=== PATIENT | male | born 1950 | race Caucasian/White ===

== ENCOUNTER 2017-02-18 23:23 | Inpatient (IN) ==
[2017-02-18] MEDS ORDERED: ALBUTEROL 2.5 MG/3 ML NEB RESP TX STA (23:57)
[2017-02-18] MEDS ORDERED: methylPREDNISolone SOD SUC 125 MG/2 ML VIAL IV STA (23:58)
[2017-02-19] MEDS ORDERED: methylPREDNISolone SOD SUC 125 MG/2 ML VIAL ONE
[2017-02-19 00:15] LABS: Basophils % 0.3 % (0.0-0.8); Eosinophils # 0.1 10*3/uL (0.0-0.87); Eosinophils % 1.1 % (0.00-10.9); Hematocrit 38.3 VOL% (42.0-52.0); Hemoglobin 13.9 GM/DL (14.0-18.0); Immature Granulocytes % 1.6 %; Immature Granulocytes Absolute 0.17 #; Lymphocytes # 0.9 10*3/uL (1.4-4.0); Lymphocytes % 8.6 % (21.2-54.2); Mean Corpuscular HGB Conc 36.3 GM/DL (32-36); Mean Corpuscular Hemoglobin 32 PG (27-34); Mean Corpuscular Volume 88.5 FL (87-102); Mean Platelet Volume 8.4 FL (9.6-12.0); Monocytes # 0.8 10*3/uL (0.11-0.8); Monocytes % 7.5 % (1.7-12.7); Neutrophils # 8.6 10*3/uL (1.4-7.4); Neutrophils % 80.9 % (38.7-73.9); Platelet Count 216 T/CUMM (130-400); Red Blood Count 4.33 MC/CUMM (3.8-5.5); Red Cell Distribution Width 11.6 % (9.3-17.3); White Blood Count 10.6 T/CUMM (4-12)
[2017-02-19 00:24] LABS: PT Patient Result 10.8 SECS
[2017-02-19 00:28] LABS: ABG Base Excess 3.4 MMOL/L (-2.5-2.5); ABG HCO3 27.4 MMOL/L (20-26); ABG Oxygen Saturation 96.9 % (95-100); ABG PCO2 58.5 MM HG (35-48); ABG PH 7.335 (7.35-7.45); ABG TCO2 27.1 MMOL/L (23-27); Allen Test Positive
--- NOTE | 2017-02-19 00:34 | Emergency Department Note ---
Rogelio Mix Emily, am scribing for, and in the presence of, Leonardo Melo MD 00: 11. Kameron Mix Robert M, MD, personally performed the services described in this documentation, ascribed by Natalia Mercado in my presence, and it is both accurate and complete . Arrival - Arrival Chief Complaint: Fall Stated Complaint: fall ED Nursing Triage Note: EMS reports that patient had a fall secondary to lightheadedness. Patient states that he has been having some chest congestion and shortness of breath that made him feel lightheaded. Hx of HTN and high cholesterol. Mode of Arrival: Stretcher Limitations: No Limitations Source: Patient - History of Present Illness HPI Narrative: Pt is a 66 y/o male who came to ED with c/o fall earlier tonight secondary to lightheadedness. Pt notes getting a Sprite from kitchen and walking down [place] when fall occurred but denies tripping. Pt has slurred speech in ED which is not nml, per spouse. Pt has seen Dr. Presley recently and given Z-deanna but no relief, per spouse. Pt has no prior hx of heart issues. Onset (ago): hour(s) Consistency: constant Severity: moderate Severity scale (1-10): 7 Quality: aching, fullness Allergies/Adverse Reactions: Allergies Allergy/AdvReac Type Severity Reaction Status Date / Time Penicillins Allergy HIVES Verified 02/19/17 00:49 Home Medications: Home Medications Medication Instructions Recorded Confirmed Type Aspirin [Aspirin EC] 81 mg PO DAILY 02/19/17 02/19/17 History Atenolol 50 mg PO BID 02/19/17 02/19/17 History LORazepam [Lorazepam] 0.5 mg PO BID PRN 02/19/17 02/19/17 History Potassium Chloride Cap/Tab [K Dur] 20 meq PO DAILY 02/19/17 02/19/17 History Simvastatin 20 mg PO BEDTIME 02/19/17 02/19/17 History Review of System - Review of System 12 point system: reviewed and no additional remarkable complaints except as stated - Review of System Constitutional: Absent: chills, fever Head/Ears/Nose/Throat: Present: other (bit tongue) Respiratory: Present: respiratory distress, wheezing Cardiovascular: Absent: chest pain, syncope Gastrointestinal: Absent: abdominal pain, nausea, vomiting Skin: Absent: rash Neurological: Present: other (feeling sleepy; lightheadedness). Absent: confusion Medical,Surgical,& Family Hx - Medical History Cardio: History of: Hypertension Endocrine: History of: Dyslipidemia - Social History Smoking Status: Current every day smoker Frequency of Alcohol Use: Occasionally Type of Drug Use: None Exam Vital Signs: Vital Signs Temperature 98.1 F 02/18/17 23:28 Pulse Rate 75 02/19/17 00:21 Respiratory Rate 20 02/19/17 00:21 Blood Pressure 214/95 02/18/17 23:28 O2 Sat by Pulse Oximetry 99 02/19/17 00:21 - General General appearance: alert, in no apparent distress, other (acute slurred speech) - Head Head exam: Present: atraumatic, normocephalic - Eye Eye exam: Present: PERRL, EOMI - ENT ENT exam: Present: mucous membranes moist, other (white maral on tongue with bleeding controlled). Absent: mucous membranes dry - Neck Neck exam: Present: full ROM. Absent: tenderness - Chest Chest inspection: Present: symmetric chest wall rise. Absent: tenderness - Respiratory Respiratory exam: Present: rales (bilateral), wheezes (bilateral), other ( tachypneic). Absent: normal lung sounds bilaterally - Cardiovascular Cardiovascular exam: Present: regular rate, normal rhythm, normal heart sounds - Abdominal Exam Abdominal exam: Present: soft, distention. Absent: tenderness, guarding, rebound - Extremities Exam Extremities exam: Present: full ROM. Absent: tenderness, pedal edema - Neurological Exam Neurological exam: Present: alert, oriented X3, CN II-XII intact. Absent: motor sensory deficit - Psychiatric Psychiatric exam: Present: normal affect, normal mood - Skin Skin exam: Present: warm, dry Course - Consultations Consultation #1: Dr. Elba Kramer will evaluate and admit the patient. Time: 01:04 Results - Labs CBC & BMP: 02/18/17 23:47 02/18/17 23:47 Lab Results: I have reviewed the patients labs Labs: Lab Results WBC 10.6 T/CUMM (4-12) 02/18/17 23:47 RBC 4.33 MC/CUMM (3.8-5.5) 02/18/17 23:47 Hgb 13.9 GM/DL (14.0-18.0) L 02/18/17 23:47 Hct 38.3 VOL% (42.0-52.0) L 02/18/17 23:47 MCV 88.5 FL (87-102) 02/18/17 23:47 MCH 32 PG (27-34) 02/18/17 23:47 MCHC 36.3 GM/DL (32-36) H 02/18/17 23:47 RDW 11.6 % (9.3-17.3) 02/18/17 23:47 Plt Count 216 T/CUMM (130-400) 02/18/17 23:47 MPV 8.4 FL (9.6-12.0) L 02/18/17 23:47 Neut % (Auto) 80.9 % (38.7-73.9) H 02/18/17 23:47 Lymph % (Auto) 8.6 % (21.2-54.2) L 02/18/17 23:47 Anderson % (Auto) 7.5 % (1.7-12.7) 02/18/17 23:47 Eos % (Auto) 1.1 % (0.00-10.9) 02/18/17 23:47 Baso % (Auto) 0.3 % (0.0-0.8) 02/18/17 23:47 Neut # (Auto) 8.6 10*3/uL (1.4-7.4) H 02/18/17 23:47 Lymph # (Auto) 0.9 10*3/uL (1.4-4.0) L 02/18/17 23:47 Anderson # (Auto) 0.8 10*3/uL (0.11-0.8) 02/18/17 23:47 Eos # (Auto) 0.1 10*3/uL (0.0-0.87) 02/18/17 23:47 Baso # (Auto) 0.0 10*3/uL (0.0-0.2) 02/18/17 23:47 Immature Gran % 1.6 % 02/18/17 23:47 Nucleated RBC % 0.0 /100WBC 02/18/17 23:47 Immature Gran # 0.17 # 02/18/17 23:47 Nucleated RBCs # 0.00 10*3/uL 02/18/17 23:47 INR 1.0 02/18/17 23:47 PT Patient/Control Mix 10.8 SECS 02/18/17 23:47 Sodium 109 MMOL/L (136-145) L* 02/18/17 23:47 Potassium 4.7 MMOL/L (3.5-5.1) 02/18/17 23:47 Chloride 69 MMOL/L (98-107) L 02/18/17 23:47 Carbon Dioxide 29 MMOL/L (21-32) 02/18/17 23:47 Anion Gap 15.7 MMOL/L (5.0-15.0) H 02/18/17 23:47 BUN 3 MG/DL (7-18) L 02/18/17 23:47 Creatinine 0.30 MG/DL (0.70-1.30) L 02/18/17 23:47 GFR Calculation 153 ML/MIN 02/18/17 23:47 BUN/Creatinine Ratio 10.00 RATIO (6.00-20.00) 02/18/17 23:47 Glucose 116 MG/DL (74-106) H 02/18/17 23:47 Calculated Osmolality 218.7 MOS/KG (273-304) L 02/18/17 23:47 Calcium 8.2 MG/DL (8.5-10.1) L 02/18/17 23:47 ABG pH 7.335 (7.35-7.45) L 02/19/17 00:10 ABG pCO2 58.5 MM HG (35-48) H 02/19/17 00:10 ABG pO2 96.0 MM HG (80-95) H 02/19/17 00:10 ABG HCO3 27.4 MMOL/L (20-26) H 02/19/17 00:10 ABG Total CO2 27.1 MMOL/L (23-27) H 02/19/17 00:10 ABG O2 Saturation 96.9 % (95-100) 02/19/17 00:10 ABG Base Excess 3.4 MMOL/L (-2.5-2.5) H 02/19/17 00:10 FiO2 28.00 PERCENT (0-100) 02/19/17 00:10 Serum Alcohol 74 MG/DL (<15) 04/19/17 23:47 - Diagnostic Findings Procedure: Chest x-ray: image reviewed by me (Volume overload versus crowding of the normal vasculature.), CT: report reviewed by me (Left nasal bone fracture ) Disposition Clinical Impression: Hyponatremia, Poorly-controlled hypertension, Syncope, Reversible obstructive airway disease Case discussed with: patient, patient's family Disposition: Still a Patient Condition: Guarded Time of Disposition: 01:04
[2017-02-19 00:50] LABS: Calcium 8.2 MG/DL (8.5-10.1); Osmolality,Calculated 218.7 MOS/KG (273-304); Potassium 4.7 MMOL/L (3.5-5.1)
[2017-02-19] MEDS ORDERED: LABETALOL 20 MG/4 ML SYRINGE IV STA (01:01)
[2017-02-19] MEDS ORDERED: LABETALOL 20 MG/4 ML SYRINGE IV ONE (01:05)
[2017-02-19] MEDS ORDERED: FUROSEMIDE 40 MG/4 ML VIAL IV STA (01:05)
[2017-02-19] MEDS ORDERED: ALBUTEROL 2.5 MG/3 ML NEB RESP TX STA (01:07)
[2017-02-19] MEDS ORDERED: FUROSEMIDE 40 MG/4 ML VIAL ONE (01:15)
[2017-02-19] MEDS ORDERED: ONDANSETRON 4 MG/2 ML VIAL IV PRN (01:17)
[2017-02-19] MEDS ORDERED: ACETAMINOPHEN 325 MG TABLET PO PRN (01:17)
--- NOTE | 2017-02-19 01:26 | EKG Report ---
Stationary ECG Study [facility] ER Test Date: 02/19/2017 1:23:50 AM Pat Name: CLAUDIA JUNIOR Department: Room: Gender: M Rn Transfer: : 1950 Requested by: Leonardo Melo Order Number: [id number] Reading MD: VANESSA LANGFORD Intervals [place] Rate: 76 P: 66 TN: 152 QRS: 65 QRSD: 86 T: 79 QT: 366 QTc: 396 Interpretive Statements SINUS RHYTHM POSSIBLE SEPTAL MYOCARDIAL INFARCTION, OLD IF PRESENT Electronically Signed On 02-23-17 11:36:43 CDT by VANESSA LANGFORD [email or web address]
[2017-02-19] MEDS ORDERED: niCARdipine INJ 25 MG in SODIUM CHLORIDE 0.9% 240 ML IV SCH (01:30)
--- NOTE | 2017-02-19 02:09 | Hospitalist History & Physical ---
Assessment and Plan - Time spent with patient Time spent with patient: Greater than 30 minutes (1) Hyponatremia Status: Acute Assessment and plan: Severe hyponatremia with a sodium of 109. A repeat has been ordered to confirm. Consider nephrology consultation. Follow-up urine electrolytes. The patient is a regular alcohol drinker consuming primarily beer. Consider beer [place] [employer] as a cause for his fluid overload and hyponatremia with low serum osmolality. Current Visit: Yes (2) Fluid overload Status: Acute Assessment and plan: Lasix ordered. Monitor urine output. Follow-up urine electrolytes. Current Visit: Yes Qualifiers: Hypervolemia type: unspecified Qualified Code(s): E87.70 - Fluid overload, unspecified (3) COPD (chronic obstructive pulmonary disease) Status: Chronic Assessment and plan: Add steroids and neb treatments. Current Visit: Yes Qualifiers: COPD type: COPD with acute exacerbation Qualified Code(s): J44.1 - Chronic obstructive pulmonary disease with (acute) exacerbation (4) Syncope Status: Acute Assessment and plan: This is thought to be related to his severe hyponatremia. Current Visit: Yes Qualifiers: Encounter type: initial encounter (5) Poorly-controlled hypertension Status: Chronic Assessment and plan: Continue home medications and add as needed IV medications to support blood pressure. I suspect this will improve with reduction of his fluid. Current Visit: Yes (6) Nasal bones, closed fracture Status: Acute Current Visit: Yes Qualifiers: Encounter type: initial encounter Qualified Code(s): S02.2XXA - Fracture of nasal bones, initial encounter for closed fracture History of Present Illness Chief complaint: Lightheadedness and fall History of present illness: Mr. Marie is a 66 year old male who came to ED with c/o fall earlier tonight secondary to lightheadedness. Patient reports getting a Sprite from kitchen and walking down [address] when fall occurred but denies tripping. Pt has slurred speech in ED. his reports that he has been on steady on his feet over the last 2 days. He had another fall a few days ago and has multiple areas of bruising on his arms in different stages of healing with skin tear. Tonight he suffered a left nasal bone fracture and had some blood in his mouth with a small laceration from the fall. CT of the head was otherwise unremarkable for evidence of bleeding. The patient is noted to have a significantly low sodium which is being repeated. It was initially 109. He also has shortness of breath and and appears volume overloaded. He has received Lasix in the emergency department and is starting to have urine output. His reports a history of hypertension and COPD. The patient continues to smoke approximately 1 pack per day and drinks 6-8 beers per day. His is his power of city attorney and surrogate decision maker. He is a full code. His home medication list was reviewed and reconciled. Mr. Marie is being admitted to the intensive care unit to the hospitalist service for further evaluation and treatment of volume overload and severe hyponatremia with lightheadedness and fall. Home Medications Medication Instructions Recorded Confirmed Type Aspirin [Aspirin EC] 81 mg PO DAILY 02/19/17 02/19/17 History Atenolol 50 mg PO BID 02/19/17 02/19/17 History LORazepam [Lorazepam] 0.5 mg PO BID PRN 02/19/17 02/19/17 History Potassium Chloride Cap/Tab [K Dur] 20 meq PO DAILY 02/19/17 02/19/17 History Simvastatin 20 mg PO BEDTIME 02/19/17 02/19/17 History Allergies Allergy/AdvReac Type Severity Reaction Status Date / Time Penicillins Allergy HIVES Verified 02/19/17 00:49 Medical,Surgical,& Family Hx - Medical History Cardio: History of: Hypertension Endocrine: History of: Dyslipidemia Respiratory: History of: COPD - Family History Family History: Reports;: Family Hypertension - Social History Smoking Status: Current every day smoker (Approximately 1 pack per day) Have you smoked in the last 12 months: Yes Frequency of Alcohol Use: Frequently (6-8 beers per day) Type of Drug Use: None Marital Status: Lives With:: Spouse Functional capacity: independent ambulation 12 point system: reviewed and no additional remarkable complaints except as stated - Constitutional Constitutional: Present: as per HPI - Neurological Neurological: Present: as per HPI, abnormal speech, frequent falls Exam - Constitutional Vitals: Period Temp Pulse Resp BP Sys/Chanel Pulse Ox Last 24 Hr 98.1 F-98.1 F 72-75 19-29 214-214/95-95 98-100 Exam: Constitutional System: Mild distress. No tremulousness. Patient is cooperative with exam. Head: Normocephalic, atraumatic. Left nasal bone fracture noted. Ecchymoses and enlarged nasal bridge noted Ears, Nose and Throat System: No pain or tenderness. No epistaxis or discharge. Dried blood in the mouth noted. Eyes System: Pupils equal, round, and reactive. Extraocular muscles intact. Neck: Supple, without adenopathy, No jugular venous distention. No thyromegaly, neck mass, or prior surgery apparent. Respiratory System: Chest bilateral rales to auscultation. Cardiovascular System: Heart with regular rate and rhythm. No murmur. GI System: Abdomen soft, nontender. Normo active bowel sounds present. Musculoskeletal System: limbs with no pedal edema. Full distal pulses. Multiple areas of bruising and skin tears noted. Neurological System: No discernable sensory deficit. No aphasia. Patient with some slurred speech. Psychiatric System: Conversation is rational Results - Labs CBC & BMP: 02/18/17 23:47 02/18/17 23:47 Lab Results: I have reviewed the past 24 hour labs - Diagnostic Findings Procedure: Chest x-ray: image reviewed by me, report reviewed by me, CT: image reviewed by me, report reviewed by me
[2017-02-19 02:15] LABS: Calcium 7.9 MG/DL (8.5-10.1); Magnesium 1.9 MG/DL (1.8-2.4); Osmolality,Calculated 217.9 MOS/KG (273-304); Potassium 4.2 MMOL/L (3.5-5.1)
[2017-02-19] MEDS ORDERED: hydrALAZINE 20 MG/1 ML VIAL IV PRN (02:20)
[2017-02-19 02:23] LABS: Apearance,Urine CLEAR (Clear); Bacteria,Urine Occasional /HPF (Few); Bilirubin,Urine Negative (Negative); Blood, Urine Small mg/dL (Negative); Glucose,Urine (UA) 50 mg/dL (Negative); Ketones,Urine Negative (Negative); Mucus,Urine Occasional /LPF (Occasional); Nitrite,Urine Negative (Negative); Protein,Urine 30 MG/DL; RBC,Urine 4 /HPF (0-4); Urine Color Yellow (Yellow); Urine Specific Gravity 1.008 (1.001-1.035); Urine Urobilinogen < 2.0 EU/DL (0.2-1.0); WBC,Urine 2 /HPF (0-6)
[2017-02-19 02:25] LABS: Barbiturates Screen,Urine Negative (Negative); Benzodiazepines Screen,Urine Negative (Negative); Cannabinoid Screen,Urine Negative (Negative); Opiate Screen,Urine Negative (Negative); Phencyclidine Screen,Urine Negative (Negative)
[2017-02-19] MEDS ORDERED: ALBUTEROL/IPRATROPIUM 3 ML NEB RESP TX PRN (02:25)
[2017-02-19 04:06] LABS: Basophils % 0.2 % (0.0-0.8); Eosinophils % 0.1 % (0.00-10.9); Hematocrit 37.8 VOL% (42.0-52.0); Hemoglobin 13.6 GM/DL (14.0-18.0); Immature Granulocytes % 0.8 %; Immature Granulocytes Absolute 0.08 #; Lymphocytes # 0.4 10*3/uL (1.4-4.0); Lymphocytes % 4.3 % (21.2-54.2); Mean Corpuscular Hemoglobin 32 PG (27-34); Mean Corpuscular Volume 87.9 FL (87-102); Mean Platelet Volume 8.2 FL (9.6-12.0); Monocytes # 0.2 10*3/uL (0.11-0.8); Neutrophils # 9.4 10*3/uL (1.4-7.4); Neutrophils % 92.6 % (38.7-73.9); Platelet Count 198 T/CUMM (130-400); Red Cell Distribution Width 11.6 % (9.3-17.3); White Blood Count 10.1 T/CUMM (4-12)
[2017-02-19 04:46] LABS: Albumin 2.5 G/DL (3.4-5.0); Bilirubin,Total 0.7 MG/DL (0.2-1.0); Calcium 7.8 MG/DL (8.5-10.1); Magnesium 1.8 MG/DL (1.8-2.4); Osmolality,Calculated 221.6 MOS/KG (273-304); Potassium 4.4 MMOL/L (3.5-5.1); Risk Ratio 1.88; Thyroid Stimulating Hormone 0.221 uIU/ml (0.358-3.74); VLDL CHOLESTEROL 10.6 MG/DL
[2017-02-19 04:52] LABS: Band Neutrophils 1 % (0-10); Eosinophils 1 % (0-10); Hypochromasia 1+; Lymphocytes 4 % (20-55); Platelet Estimate Normal; Segmented Neutrophils 90 % (50-85); Total Cells Counted 100
[2017-02-19] MEDS: LORazepam 0.5 MG TABLET PO PRN (06:21)
[2017-02-19] MEDS: ALBUTEROL/IPRATROPIUM 3 ML NEB RESP TX SCH ×3 (07:02→19:52)
--- NOTE | 2017-02-19 07:34 | XRay Report ---
XR chest 1V portable Indication: Shortness of breath Comparison: One May 2013 Findings: The heart and mediastinum are normal in size and configuration. The pulmonary vascularity is normal in caliber. Lung volumes are increased with prominent bronchial markings. No lung infiltrates, effusions, pneumothorax or other abnormality is demonstrated. Impression: Chronic lung changes. No acute process or significant change. PROCEDURE INTERPRETED AT [facility] DEPARTMENT OF RADIOLOGY Final Report Signed by: Dr. Gulshan Florian
--- NOTE | 2017-02-19 07:36 | CT Report ---
CT brain Indication: Headache after fall, slurred speech Comparison: 22 September 2013 Technique: Axial CT imaging of the brain is performed without contrast with 3 mm increments. Findings: No evidence of hemorrhage, mass mass effect midline shift or acute infarct seen. There is moderate diffuse cerebral atrophy. There are areas of decreased density seen within the white matter. Otherwise the brain parenchyma attenuation and differentiation appears within normal limits. The ventricles and cisterns are normal in caliber. Left nasal bone fractures present, age indeterminate. No other cranial or skull base abnormality is identified. Impression: No evidence of acute intracranial process. Left nasal fracture age indeterminate. This CT exam was performed using one or more the following dose reduction techniques: Automated exposure control, adjustment of the MA and/or KV according to patient size, or use of iterative reconstruction technique. PROCEDURE INTERPRETED AT [facility] DEPARTMENT OF RADIOLOGY Final Report Signed by: Dr. Gulshan Florian
[2017-02-19] MEDS: methylPREDNISolone SOD SUC 40 MG/1 ML VIAL IV SCH ×2 (08:07→17:54)
[2017-02-19] MEDS ORDERED: NIFEdipine 10 MG CAPSULE PO PRN (08:38)
[2017-02-19] MEDS: SODIUM CHLORIDE 0.9% 1,000 ML IV SCH ×2 (08:58→18:53)
[2017-02-19] MEDS ORDERED: SPIRONOLACTONE 25 MG TABLET PO SCH (09:00)
[2017-02-19] MEDS ORDERED: FUROSEMIDE 40 MG/4 ML VIAL IV SCH (09:00)
[2017-02-19] MEDS: ENOXAPARIN 40 MG/0.4 ML SYRINGE SUBCUT SCH (09:03)
[2017-02-19] MEDS: ASPIRIN EC 81 MG TABLET PO SCH (09:04)
[2017-02-19] MEDS: MULTIVITAMIN (BEROCCA) TABLET PO SCH (09:04)
[2017-02-19] MEDS: THIAMINE 100 MG TABLET PO SCH (09:04)
[2017-02-19] MEDS: FOLIC ACID 1 MG TABLET PO SCH (09:04)
[2017-02-19] MEDS: POTASSIUM CHLORIDE 10 MEQ TABLET PO SCH (09:04)
[2017-02-19] MEDS: PANTOPRAZOLE 40 MG TABLET PO SCH (09:06)
[2017-02-19] MEDS: ATENOLOL 50 MG TABLET PO SCH ×2 (09:06→21:57)
[2017-02-19] MEDS: SIMVASTATIN 40 MG TABLET PO SCH (21:57)
[2017-02-20] MEDS: methylPREDNISolone SOD SUC 40 MG/1 ML VIAL IV SCH ×3 (00:23→21:25)
[2017-02-20] MEDS: ALBUTEROL/IPRATROPIUM 3 ML NEB RESP TX SCH ×4 (00:54→20:25)
[2017-02-20] MEDS: SODIUM CHLORIDE 0.9% 1,000 ML IV SCH ×2 (06:12→16:49)
[2017-02-20 06:41] LABS: Hematocrit 36.3 VOL% (42.0-52.0); Hemoglobin 13.3 GM/DL (14.0-18.0); Mean Corpuscular HGB Conc 36.6 GM/DL (32-36); Mean Corpuscular Hemoglobin 32 PG (27-34); Mean Corpuscular Volume 88.3 FL (87-102); Mean Platelet Volume 8.4 FL (9.6-12.0); Platelet Count 261 T/CUMM (130-400); Red Blood Count 4.11 MC/CUMM (3.8-5.5); Red Cell Distribution Width 12.1 % (9.3-17.3); White Blood Count 12.5 T/CUMM (4-12)
[2017-02-20 06:42] LABS: Basophils % 0.1 % (0.0-0.8); Immature Granulocytes % 0.5 %; Immature Granulocytes Absolute 0.06 #; Lymphocytes # 0.3 10*3/uL (1.4-4.0); Lymphocytes % 2.6 % (21.2-54.2); Monocytes # 0.5 10*3/uL (0.11-0.8); Monocytes % 4.1 % (1.7-12.7); Neutrophils # 11.6 10*3/uL (1.4-7.4); Neutrophils % 92.7 % (38.7-73.9)
[2017-02-20 06:52] LABS: Lymphocytes 3 % (20-55); Segmented Neutrophils 96 % (50-85); Total Cells Counted 100
[2017-02-20 06:53] LABS: Hypochromasia 2+; Microcytosis 2+; Platelet Estimate Adequate
[2017-02-20 07:41] LABS: Osmolality,Calculated 241.2 MOS/KG (273-304); Potassium 4.4 MMOL/L (3.5-5.1)
--- NOTE | 2017-02-20 07:49 | Hospitalist Progress Note ---
Assessment and Plan (1) Hyponatremia Status: Acute Assessment and plan: The patient has acute on chronic hyponatremia present on admission. Will currently continue with normal saline infusion and give Lasix to reduce lung water. I am going to continue with duo nebs and add some antibiotic and some steroid. The patient has acute on chronic COPD exacerbation. Current Visit: Yes (2) Fluid overload Status: Acute Current Visit: Yes Qualifiers: Hypervolemia type: unspecified Qualified Code(s): E87.70 - Fluid overload, unspecified (3) COPD (chronic obstructive pulmonary disease) Status: Chronic Current Visit: Yes Qualifiers: COPD type: COPD with acute exacerbation Qualified Code(s): J44.1 - Chronic obstructive pulmonary disease with (acute) exacerbation Hospitalist: Subjective Interval history: The patient complains of shortness of breath and wheezing. He says that he went to Dr. Presley's office about a week ago with similar complaint and that he improved on steroids with azithromycin. The steroid might have been the precipitating factor of his hyponatremia. The patient's sensorium is more clear today and sodium is 120. The patient does not complain of chest pain or palpitations. Exam - Constitutional Vitals: Period Temp Pulse Resp BP Sys/Chanel Pulse Ox Last 24 Hr 97.2 F-99.5 F 76-99 15-33 121-182/43-94 90-100 Exam: Constitutional System: Mild distress on account of shortness of breath and wheezing. No tremulousness. Head: Normocephalic, atraumatic. Ears, Nose and Throat System: No evidence of Otitis or Mastoiditis. No epistaxis or discharge Eyes System: Pupils equal, round, and reactive. Extraocular muscles intact. Neck: Supple, without adenopathy, 1+ jugular venous distention. No thyromegaly , neck mass, or prior surgery apparent. Respiratory System: Chest moderate wheezing with upper airway congestion to auscultation. Cardiovascular System: Heart with regular rate and rhythm. No murmur. GI System: Abdomen soft, nontender. Normo active bowel sounds present. Musculoskeletal System: limbs with no pedal edema. Full distal pulses. Neurological System: No discernable sensory deficit. No aphasia Psychiatric System: Conversation is rational Results - Labs CBC & BMP: 02/20/17 06:06 02/20/17 06:06 Lab Results: I have reviewed the past 24 hour labs
[2017-02-20] MEDS: ENOXAPARIN 40 MG/0.4 ML SYRINGE SUBCUT SCH (09:28)
[2017-02-20] MEDS: MULTIVITAMIN (BEROCCA) TABLET PO SCH (09:29)
[2017-02-20] MEDS: THIAMINE 100 MG TABLET PO SCH (09:30)
[2017-02-20] MEDS: PANTOPRAZOLE 40 MG TABLET PO SCH (09:30)
[2017-02-20] MEDS: POTASSIUM CHLORIDE 10 MEQ TABLET PO SCH (09:30)
[2017-02-20] MEDS: FUROSEMIDE 40 MG/4 ML VIAL IV SCH ×2 (09:30→16:15)
[2017-02-20] MEDS: FOLIC ACID 1 MG TABLET PO SCH (09:30)
[2017-02-20] MEDS: ATENOLOL 50 MG TABLET PO SCH ×2 (09:30→21:24)
[2017-02-20] MEDS: ASPIRIN EC 81 MG TABLET PO SCH (09:30)
--- NOTE | 2017-02-20 09:43 | Consultation ---
Assessment and Plan - Time spent with patient Time spent with patient: Less than 30 minutes (1) Nasal bones, closed fracture Status: Acute Assessment and plan: Closed nasal fracture done at bedside patient tolerated the procedure well. I would like patient follow-up in my office in 1 week if possible to make sure that he likes the cosmetic outcome of the nasal fracture reduction since he does have significant facial edema this is hard to manager rfid at this point but I think you will be pleased. Thank you very much for this consult I will sign off this case by remain available if there is any questions or concerns Current Visit: Yes Qualifiers: Encounter type: initial encounter Qualified Code(s): S02.2XXA - Fracture of nasal bones, initial encounter for closed fracture (2) Facial edema Status: Acute Assessment and plan: Secondary nasal fracture I would continue observation Current Visit: Yes History of Present Illness - Data of Consult Patient: new to practice Consult date: 02/20/17 Requesting Physician: Abraham Wadsworth - Consult Narrative Reason for consult: Nasal fracture History of present illness: Mr. Marie is a 66 year old male with a fall and an associated closed nasal fracture ENT is consulted to evaluate and treat. The patient states he has no difficulty breathing and that the functionality of his nose is fine he does note minimal pain with a lot of swelling in that area from the fall. CC: Abraham Wadsworth MD - Home Medications and Allergies Home Medications: Home Medications Medication Instructions Recorded Confirmed Type Aspirin [Aspirin EC] 81 mg PO DAILY 02/19/17 02/19/17 History Atenolol 50 mg PO BID 02/19/17 02/19/17 History LORazepam [Lorazepam] 0.5 mg PO BID PRN 02/19/17 02/19/17 History Potassium Chloride Cap/Tab [K Dur] 20 meq PO DAILY 02/19/17 02/19/17 History Simvastatin 20 mg PO BEDTIME 02/19/17 02/19/17 History Allergies/Adverse Reactions: Allergies Allergy/AdvReac Type Severity Reaction Status Date / Time Penicillins Allergy HIVES Verified 02/19/17 00:49 12 point system: reviewed and no additional remarkable complaints except as stated Medical,Surgical,& Family Hx - Medical History Cardio: History of: Hypertension Psychological: History of: Anxiety Disorders HEENT: History of: Ear Problem (hard of hearing) Endocrine: History of: Dyslipidemia Respiratory: History of: COPD Gastrointestinal: History of: Hemorrhoids Musculoskeletal: History of: Back/Neck Problems (arthritis) - Family History Family History: Reports;: Family Heart Disease (father had DC), Family Hypertension (brother), Family Stroke (father) - Social History Smoking Status: Current every day smoker Frequency of Alcohol Use: Frequently Type of Drug Use: None Exam - Constitutional Vitals: Period Temp Pulse Resp BP Sys/Chanel Pulse Ox Last 24 Hr 97.2 F-99.5 F 76-99 15-32 127-182/43-94 90-100 General appearance: normal weight, no acute distress - Head Head exam: Present: abrasion, contusion, hematoma - Eye Eye exam: Present: EOMI Pupils: Present: KASSANDRA - ENT ENT exam: Present: normal exam, normal external ear exam, normal oropharynx, other (Left closed nasal fracture with associated left C-shaped deformity comminuted fracture displaced.) - Respiratory Respiratory exam: Present: other (No shortness of breath or difficulty breathing per patient) - Cardiovascular Cardiovascular exam: Present: regular rate and rhythm - GI/Abdominal GI/Abdominal exam: Present: soft (No gross organomegaly) - Extremities Exam Extremities exam: Present: normal inspection - Neurological Exam Neurological exam: Present: alert, oriented X3, CN II-XII intact - Psychiatric Psychiatric exam: Present: normal affect, normal mood - Skin Skin exam: Present: normal color, warm Results - Labs CBC & BMP: 02/20/17 06:06 02/20/17 06:06 Lab Results: I have reviewed the past 24 hour labs
[2017-02-20] MEDS: LEVOFLOXACIN INJ 500 MG in PREMIX 1 EACH IV SCH (09:59)
[2017-02-20] MEDS: SIMVASTATIN 40 MG TABLET PO SCH (21:24)
[2017-02-21] MEDS: ALBUTEROL/IPRATROPIUM 3 ML NEB RESP TX SCH ×4 (00:23→19:33)
[2017-02-21] MEDS: LORazepam 0.5 MG TABLET PO PRN (00:36)
[2017-02-21] MEDS: SODIUM CHLORIDE 0.9% 1,000 ML IV SCH (02:30)
[2017-02-21 05:11] LABS: Basophils % 0.1 % (0.0-0.8); Hematocrit 34.7 VOL% (42.0-52.0); Hemoglobin 11.8 GM/DL (14.0-18.0); Immature Granulocytes % 0.6 %; Immature Granulocytes Absolute 0.07 #; Lymphocytes # 0.4 10*3/uL (1.4-4.0); Lymphocytes % 3.1 % (21.2-54.2); Mean Corpuscular Hemoglobin 32 PG (27-34); Mean Corpuscular Volume 93.5 FL (87-102); Mean Platelet Volume 8.4 FL (9.6-12.0); Monocytes # 0.7 10*3/uL (0.11-0.8); Monocytes % 5.7 % (1.7-12.7); Neutrophils # 11.4 10*3/uL (1.4-7.4); Neutrophils % 90.5 % (38.7-73.9); Platelet Count 223 T/CUMM (130-400); Red Blood Count 3.71 MC/CUMM (3.8-5.5); Red Cell Distribution Width 12.5 % (9.3-17.3); White Blood Count 12.6 T/CUMM (4-12)
[2017-02-21 05:46] LABS: Calcium 8.2 MG/DL (8.5-10.1); Osmolality,Calculated 256.1 MOS/KG (273-304); Potassium 3.8 MMOL/L (3.5-5.1)
[2017-02-21 05:51] LABS: Hypochromasia 1+; Lymphocytes 3 % (20-55); Microcytosis 1+; Segmented Neutrophils 93 % (50-85); Total Cells Counted 100
[2017-02-21 05:52] LABS: Platelet Estimate Normal
--- NOTE | 2017-02-21 08:44 | XRay Report ---
History: Hypoxia Date: 02/21/2017 Study: Chest x-ray AP portable Comparison exam: February 19, 2017 The cardiac silhouette is not enlarged. The mediastinal contours are stable. There is no gross pulmonary vascular engorgement. There is some coarsening of the interstitial markings in the lower lungs as before without change. There is no new or worsening infiltrate. There is no pleural effusion or pneumothorax. Osseous structures are similar. Impression: No significant interval change from the previous study PROCEDURE INTERPRETED AT [facility] DEPARTMENT OF RADIOLOGY Final Report Signed by: Dr. Martha Cardoza
--- NOTE | 2017-02-21 08:44 | Hospitalist Progress Note ---
Assessment and Plan (1) Hyponatremia Status: Acute Assessment and plan: The patient has acute on chronic hyponatremia present on admission. The patient is ready to discontinue IV saline infusion and transferred to the floor. I am going to transition Lasix to pills. I am going to continue with duo nebs and continue some antibiotic and reduce steroid. The patient has acute on chronic COPD exacerbation. The patient has no evidence of alcohol withdrawal Current Visit: Yes (2) Fluid overload Status: Acute Current Visit: Yes Qualifiers: Hypervolemia type: unspecified Qualified Code(s): E87.70 - Fluid overload, unspecified (3) COPD (chronic obstructive pulmonary disease) Status: Chronic Current Visit: Yes Qualifiers: COPD type: COPD with acute exacerbation Qualified Code(s): J44.1 - Chronic obstructive pulmonary disease with (acute) exacerbation Hospitalist: Subjective Interval history: The patient is awake and alert this morning and has no delirium. The patient had reduction of the nasal fracture by Dr. Conner yesterday and the nose appears more straight today. He is not having difficulty breathing. The patient has no palpitations or angina. The patient is ready for transfer to the floor. Exam - Constitutional Vitals: Period Temp Pulse Resp BP Sys/Chanel Pulse Ox Last 24 Hr 97.8 F-99.4 F 80-105 15-29 102-172/55-97 90-100 Exam: Constitutional System: No distress. No tremulousness. Head: Normocephalic, atraumatic. Ears, Nose and Throat System: No evidence of Otitis or Mastoiditis. No epistaxis or discharge Eyes System: Pupils equal, round, and reactive. Extraocular muscles intact. Neck: Supple, without adenopathy, no jugular venous distention. No thyromegaly , neck mass, or prior surgery apparent. Respiratory System: Chest mild wheezing with upper airway congestion to auscultation. Cardiovascular System: Heart with regular rate and rhythm. No murmur. GI System: Abdomen soft, nontender. Normo active bowel sounds present. Musculoskeletal System: limbs with no pedal edema. Full distal pulses. Neurological System: No discernable sensory deficit. No aphasia Psychiatric System: Conversation is rational Results - Labs CBC & BMP: 02/21/17 04:35 02/21/17 04:35 Lab Results: I have reviewed the past 24 hour labs
[2017-02-21] MEDS: ASPIRIN EC 81 MG TABLET PO SCH (09:22)
[2017-02-21] MEDS: THIAMINE 100 MG TABLET PO SCH (09:22)
[2017-02-21] MEDS: ATENOLOL 50 MG TABLET PO SCH ×2 (09:22→20:51)
[2017-02-21] MEDS: POTASSIUM CHLORIDE 10 MEQ TABLET PO SCH (09:22)
[2017-02-21] MEDS: MULTIVITAMIN (BEROCCA) TABLET PO SCH (09:23)
[2017-02-21] MEDS: FOLIC ACID 1 MG TABLET PO SCH (09:23)
[2017-02-21] MEDS: FUROSEMIDE 40 MG/4 ML VIAL IV SCH (09:24)
[2017-02-21] MEDS: methylPREDNISolone SOD SUC 40 MG/1 ML VIAL IV SCH ×2 (09:28→20:52)
[2017-02-21] MEDS: LEVOFLOXACIN INJ 500 MG in PREMIX 1 EACH IV SCH (09:31)
[2017-02-21] MEDS: PANTOPRAZOLE 40 MG TABLET PO SCH (09:47)
[2017-02-21] MEDS: ENOXAPARIN 40 MG/0.4 ML SYRINGE SUBCUT SCH (10:54)
[2017-02-21] MEDS: FUROSEMIDE 40 MG TABLET PO SCH ×2 (13:31→16:50)
[2017-02-21] MEDS: SIMVASTATIN 40 MG TABLET PO SCH (20:51)
[2017-02-22] MEDS: ALBUTEROL/IPRATROPIUM 3 ML NEB RESP TX SCH ×2 (00:03→07:09)
[2017-02-22 06:38] LABS: Calcium 8.4 MG/DL (8.5-10.1); Magnesium 1.8 MG/DL (1.8-2.4); Osmolality,Calculated 259.8 MOS/KG (273-304); Potassium 3.9 MMOL/L (3.5-5.1)
[2017-02-22] MEDS: methylPREDNISolone SOD SUC 40 MG/1 ML VIAL IV SCH (08:47)
[2017-02-22] MEDS: MULTIVITAMIN (BEROCCA) TABLET PO SCH (08:50)
[2017-02-22] MEDS: ASPIRIN EC 81 MG TABLET PO SCH (08:50)
[2017-02-22] MEDS: THIAMINE 100 MG TABLET PO SCH (08:50)
[2017-02-22] MEDS: FUROSEMIDE 40 MG TABLET PO SCH (08:51)
[2017-02-22] MEDS: FOLIC ACID 1 MG TABLET PO SCH (08:51)
[2017-02-22] MEDS: ATENOLOL 50 MG TABLET PO SCH (08:51)
[2017-02-22] MEDS: PANTOPRAZOLE 40 MG TABLET PO SCH (08:51)
[2017-02-22] MEDS: ENOXAPARIN 40 MG/0.4 ML SYRINGE SUBCUT SCH (08:52)
[2017-02-22] MEDS: POTASSIUM CHLORIDE 10 MEQ TABLET PO SCH (08:52)
[2017-02-22] MEDS: LEVOFLOXACIN INJ 500 MG in PREMIX 1 EACH IV SCH (09:04)
[2017-02-22 10:40] VITALS: BP 131/61
--- NOTE | 2017-02-22 11:02 | Discharge Summary ---
Hospital Course - Hospital Course Hospital Course: Mr. Marie was admitted to the hospital with hyponatremia, metabolic encephalopathy due to hyponatremia, and nasal fracture due to syncope and fall. The patient was initially admitted to intensive care unit due to the severity of hyponatremia. He had fluid restriction and he had infusion of normal saline. The patient's sodium improved over the first 36 hours and metabolic encephalopathy resolved after the sodium was greater than 120. Saline infusion was discontinued and the patient was transferred to the floor fluid restriction. The following day the patient's sodium was 130. The patient is completely rational and participated in decision making with his . The patient wished to go home which appears to be safe. The patient's gait is stable and he no longer has weakness. Dr. garcia saw the patient and reduce the nasal fracture dislocation. Dr. nieves wants to see the patient back in the office. The patient promised to adhere to medical advice including fluid restriction to 1500 cc per day, he is not to drink beer, he is to salt his food , and he is to follow-up with Dr. Presley either Eren Crisostomo within the week for repeat sodium determination. On the date of discharge, chest clear, abdomen soft, there is no shortness of breath. Discharge time pertaining to the patient and including [id number] time was 32 minutes - Time spent with patient Time with patient DS: Greater than 30 minutes Diagnosis - Discharge Diagnosis (1) Hyponatremia Status: Chronic (2) Fluid overload Status: Resolved (3) COPD (chronic obstructive pulmonary disease) Status: Chronic Discharge Plan - Discharge Data Disposition: Disch To Home/Self Care Condition at Discharge: Stable Discharge Diet: advance to your usual diet, other (Fluid restriction 1500 ml per day; avoid beer) Activity: resume usual activities as tolerated - Discharge Medications Continue Potassium Chloride Cap/Tab [K Dur] 20 meq PO DAILY Aspirin [Aspirin EC] 81 mg PO DAILY LORazepam [Lorazepam] 0.5 mg PO BID PRN PRN Reason: Anxiety Atenolol 50 mg PO BID Simvastatin 20 mg PO BEDTIME - Follow Up or Referral Follow Up: Eren Presley [Physician] - - Forms/Instructions Exam - Constitutional Vitals: Period Temp Pulse Resp BP Sys/Chanel Pulse Ox Last 24 Hr 96.6 F-98.0 F 77-97 16-26 124-149/58-82 92-100 Discharge Results Labs on day of discharge: Labs from last 24 hours 02/22/17 02/22/17 05:48 05:48 Sodium 130 L Potassium 3.9 Chloride 86 L Carbon Dioxide 38 H Anion Gap 9.9 BUN 11 Creatinine 0.70 GFR Calculation 110 BUN/Creatinine Ratio 15.00 Glucose 119 H Calculated Osmolality 259.8 L Calcium 8.4 L Magnesium 1.8 B-Natriuretic Peptide 247 H DS: Provider Date of admission: 02/19/17 01:17 Primary care physician: Kranthi Presley Attending physician on admission: Abraham Wadsworth MD Consults: 02/20/17 07:56 Consult to Physician [CONS] Routine Comment: nasal fracture after syncope Consulting Provider: Anshu Garcia Discharging clinician: Abraham Wadsworth MD
== END 2017-02-22 11:30 | disposition home or self-care (01) | DRG 640 ==
LOC: EDBD → EDUNIT# → N.ED 23:23 → N.EDINP 02-19 01:17 → N.ICU 02-19 02:16 → N.4E 02-21 13:18
PROVIDERS: ADMIT Internal Medicine; ATTEND Internal Medicine